=== PATIENT | female | born 1980 | race Caucasian/White ===

== ENCOUNTER 2021-11-01 17:14 | Emergency (ER) | payer OTHER ==
[~2021-11-01] VITALS: Ht 167.6 cm; Wt 68.0 kg
[2021-11-01] MEDS ORDERED: IV NORMAL SALINE 1000 ML BAG IV ONE (17:30)
[2021-11-01 17:44] LABS: HEMATOCRIT 28.2 % (31.2-41.9); MEAN CORPUSCULAR VOLUME 75.1 fL (75.5-95.3); PLATELET COUNT (AUTO) 217 K/uL (179-408)
[2021-11-01 17:54] LABS: CREATININE 0.8 mg/dL (0.6-1.3); POTASSIUM 3.2 mmol/L (3.5-5.1)
[2021-11-01 17:59] LABS: BILIRUBIN,DIRECT 0.1 mg/dL (0.0-0.2); BILIRUBIN,TOTAL 0.2 mg/dL (0.2-1.0); TOTAL PROTEIN, SERUM 6.3 g/dL (6.4-8.2)
[2021-11-01 18:37] LABS: *BILIRUBIN,URIN NEGATIVE (NEGATIVE); *BLOOD, URINE NEGATIVE (NEGATIVE); *CLARITY,URINE CLEAR (CLEAR); *COLOR,URINE LIGHT YELLOW (YELLOW); *KETONES,URINE NEGATIVE (NEGATIVE); *UROBILINOGEN,URINE 0.2 E.U./dl (NORMAL); LEUKOCYTE ESTERASE ,URINE NEGATIVE (NEGATIVE); NITRITE, URINE NEGATIVE (NEGATIVE); PH,URINE 6.5 (5.0-8.0); UGLUCOSE NEGATIVE (NEGATIVE)
[2021-11-01 18:39] LABS: *URINE HCG, QUAL NEG (NEGATIVE)
[2021-11-01] MEDS ORDERED: KETOROLAC TROMETHAMINE 30 MG INJ IVP ONE (19:00)
[2021-11-01] MEDS ORDERED: MORPHINE SULFATE 4 MG/1 ML DISP.SYRIN IV ONE (19:00)
[2021-11-01] MEDS ORDERED: POTASSIUM CHLORIDE 20 MEQ POWDER PACKET GT ONE (19:00)
[2021-11-01] MEDS ORDERED: MORPHINE SULFATE 4 MG/1 ML DISP.SYRIN ONE (19:07)
--- NOTE | 2021-11-01 19:21 | NUR ---
HAND OFF REPORT GIVEN TO ISA FRANKLIN, PT IN STABLE CONDITION.
[2021-11-01] MEDS ORDERED: IV NORMAL SALINE 250 ML IV ONE (19:26)
[2021-11-01] MEDS ORDERED: SWABABLE VALVE TRANSFER SET EA MC ONE (19:26)
[2021-11-01] MEDS ORDERED: IOHEXOL 350 100 ML INFUS..BTL ONE (19:26)
[2021-11-01] MEDS ORDERED: POTASSIUM CHLORIDE 20 MEQ POWDER PACKET ONE (20:06)
[2021-11-01] MEDS ORDERED: HYDROMORPHONE 1 MG/1 ML DISP.SYRIN IV ONE (20:15)
[2021-11-01] MEDS ORDERED: HYDROMORPHONE 1 MG/1 ML DISP.SYRIN ONE (21:03)
--- NOTE | 2021-11-01 21:35 | NUR ---
IV removed. Catheter intact and site benign. Pressure and 4x4 gauze applied to site. No bleeding noted.
--- NOTE | 2021-11-01 21:41 | NUR ---
Patient discharged to home in stable condition WITH MOTHER TAKING PATIENT. Written and verbal after care instructions given. Patient verbalizes understanding of instructions. Stressed follow up or return to ER for worsening s/s.
[2021-11-01 22:07] VITALS: BP 122/68
== END 2021-11-01 21:50 | disposition home or self-care (01) ==
LOC: ER 17:18
DX: R55 Syncope and collapse (principal); G89.4 Chronic pain syndrome; M35.2 Behcet's disease; D68.61 Antiphospholipid syndrome; N30.10 Interstitial cystitis (chronic) without hematuria; Z79.82 Long term (current) use of aspirin; R10.30 Lower abdominal pain, unspecified; N92.0 Excessive and frequent menstruation with regular cycle
CPT/HCPCS: 99285; 70450; 96374; 96361; 96375; 80076; 80048; 81003; 84703; 85025; 36415; 93005; 71275; 74176; Q9967; J1170; J2270